=== PATIENT | male | born 1940 | race Two or more races ===

== ENCOUNTER 2022-08-25 10:39 | Outpatient (CLI) | payer OTHER | END 2022-08-25 10:42 | disposition home or self-care (01) | LOC: RAD 10:39 | PROVIDERS: ATTEND Urology | DX: R97.20 Elevated prostate specific antigen [PSA] (principal) ==

== ENCOUNTER 2023-12-12 10:55 | Inpatient (IN) | payer OTHER ==
[~2023-12-12] VITALS: Ht 231.1 cm; Wt 68.0 kg
[2023-12-12] MEDS ORDERED: LIPITOR40 M1 (11:22)
[2023-12-12] MEDS ORDERED: LOSARTAN POTAS100 MG (11:22)
[2023-12-12] MEDS ORDERED: ASPIRIN81 MG (11:22)
[2023-12-12] MEDS ORDERED: CILOSTAZOL100 MG (11:23)
[2023-12-12] MEDS ORDERED: GLYCOTROL CAPS1 EACH (11:23)
[2023-12-12] MEDS ORDERED: DONEPEZIL HCL5 MG (11:23)
[2023-12-12] MEDS ORDERED: ZETIA10 MG (11:23)
[2023-12-12] MEDS ORDERED: FAMOtidine 10 MG/ML (4ML VIAL) IV PUSH ONE (12:45)
[2023-12-12] MEDS ORDERED: CHOLESTYRAMINE/ASPARTAME LIGHT 4 G/PKT PACKET PO ONE (12:58)
[2023-12-12] MEDS ORDERED: FAMOTIDINE/PF 20 MG/2 ML VIAL ONE (13:01)
[2023-12-12] MEDS ORDERED: 0.9 % SODIUM CHLORIDE 500 ML IV ONE (13:15)
[2023-12-12 13:44] LABS: HEMATOCRIT 47.5 % (39.0-48.0); HEMOGLOBIN 16.9 g/dL (13-16.00); MEAN CELL VOLUME 89.8 fL (80.0-100.00); MEAN CORPUSCULAR HGB CONC 35.7 g/dl (32.0-36.0); PLATELET COUNT 331 K/uL (150-450); RED BLOOD COUNT 5.29 M/uL (4.00-6.00); RED CELL DISTRIBUTION WIDTH 13.7 % (11.5-14.5)
[2023-12-12 14:15] LABS: CALCIUM 10.5 mg/dL (8.5-10.1); CREATININE SERUM 1.66 mg/dL (0.70-1.30); GFR 39.96
[2023-12-12 14:19] LABS: POTASSIUM 2.42 mEq/L (3.5-5.1)
[2023-12-12 14:21] LABS: AMYLASE 110 U/L (25-115)
[2023-12-12 14:22] LABS: LIPASE 103 U/L (13-75)
[2023-12-12] MEDS ORDERED: POTASSIUM CHLORIDE/D5-0.9%NACL 1,000 ML IV ONE (16:15)
[2023-12-12] MEDS ORDERED: 0.9 % SODIUM CHLORIDE 1,000 ML IV SCH (19:30)
[2023-12-12] MEDS ORDERED: ONDANSETRON HCL 4 MG in 0.9 % SODIUM CHLORIDE 50 ML IV PRN (19:30)
[2023-12-12] MEDS ORDERED: ACETAMINOPHEN 500 MG GEL..CAP PO PRN (19:30)
[2023-12-12] MEDS ORDERED: PIPERACILLIN/TAZOBACTAM SODIUM 3.375 GM in 0.9 % SODIUM CHLORIDE 100 ML IV SCH (19:31)
[2023-12-12] MEDS ORDERED: PIPERACILLIN/TAZOBACTAM SODIUM 3.375 GM VIAL IV ONE (20:15)
[2023-12-12 21:16] LABS: INR 1.21; PARTIAL THROMBOPLASTIN TIME 31.3 SECONDS (22.0-34.0)
[2023-12-12 21:36] LABS: C-REACTIVE PROTEIN 0.36 MG/DL (0.00-0.29)
[2023-12-12] MEDS ORDERED: POTASSIUM PHOS,M-BASIC-D-BASIC 9 MM in 0.9 % SODIUM CHLORIDE 250 ML IV ONE (23:00)
[2023-12-12 23:40] LABS: PH,URINE 5.5 (5.0-8.0); URINE APPEARANCE Clear; URINE BILIRRUBIN Negative (NEGATIVE); URINE BLOOD Negative; URINE COLOR Dark Yellow; URINE GLUCOSE Negative (NEGATIVE); URINE KETONE Trace (NEGATIVE); URINE LEUKOCYTE Trace; URINE NITRATE Negative; URINE PROTEIN 30 (NEGATIVE)
[2023-12-12 23:45] LABS: URINE BACTERIA 21.4 uL (0.0-1933); URINE EPITHELIAL CELLS 13.6 uL (0.0-38.8); URINE RBC 36.9 uL (0.0-20.8); URINE WBC 12.8 uL (0.0-23.2)
[2023-12-13 00:04] LABS: URINE CAST 0.61 uL (0.0-1.40)
[2023-12-13 00:05] LABS: URINE MUCUS SCANT
[2023-12-13] MEDS ORDERED: PIPERACILLIN/TAZOBACTAM SODIUM 3.375 GM VIAL IV ONE ×4 (05:11→22:23)
[2023-12-13] MEDS ORDERED: LACTOBACILLUS ACIDOPHILUS 1 CAP CAP PO SCH (09:00)
[2023-12-13] MEDS ORDERED: METRONIDAZOLE/SODIUM CHLORIDE 100 ML IV SCH (09:00)
[2023-12-13] MEDS ORDERED: ENOXAPARIN SODIUM 40 MG/0.4 ML SYRINGE SUBCUTANEO SCH (09:00)
[2023-12-13] MEDS ORDERED: FLUOXETINE HCL 20 MG CAPSULE PO SCH (09:00)
[2023-12-13] MEDS ORDERED: LOSARTAN/HYDROCHLOROTHIAZIDE 1 UDTAB TABLET PO SCH (09:00)
[2023-12-13 16:50] VITALS: BP 146/63; O2SAT 98
[2023-12-13] MEDS ORDERED: DONEPEZIL HCL 5 MG TABLET PO SCH (17:00)
[2023-12-13] MEDS ORDERED: ATORVASTATIN CALCIUM 40 MG TABLET PO SCH (17:00)
[2023-12-13] MEDS ORDERED: POTASSIUM CHLORIDE/D5-0.9%NACL 1,000 ML IV ONE (20:45)
[2023-12-13] MEDS ORDERED: POTASSIUM CHLORIDE IN 0.9%NACL 40 MEQ/1,000 ML PIGGYBAG IV ONE (21:06)
[2023-12-14] VITALS: BP 126/60; O2SAT 98
[2023-12-14 08:00] VITALS: BP 167/74; O2SAT 98
[2023-12-14 08:17] LABS: HEMATOCRIT 40.4 % (39.0-48.0); HEMOGLOBIN 14.1 g/dL (13-16.00); MEAN CELL VOLUME 91.8 fL (80.0-100.00); MEAN CORPUSCULAR HEMOGLOBIN 32.1 pg (27.00-32.0); PLATELET COUNT 245 K/uL (150-450); RED CELL DISTRIBUTION WIDTH 13.3 % (11.5-14.5)
[2023-12-14] MEDS ORDERED: LOSARTAN POTASSIUM 25 MG TABLET PO SCH (09:00)
[2023-12-14 09:25] LABS: ALBUMIN 3.1 gm/dL (3.4-5.0); BILIRUBIN TOTAL 0.87 mg/dL (0.3-1.2); CALCIUM 9.2 mg/dL (8.5-10.1); CREATININE SERUM 1.5 mg/dL (0.70-1.30); GFR 44.92; GLOBULINA 3.2 G/DL (2.4-3.5); MAGNESIUM 1.9 mg/dL (1.8-2.4); PHOSPHOROUS 2.8 mg/dL (2.5-4.9); POTASSIUM 3.34 mEq/L (3.5-5.1); TOTAL PROTEIN 6.3 gm/dL (6.4-8.2)
[2023-12-14 09:27] LABS: C-REACTIVE PROTEIN 0.46 MG/DL (0.00-0.29); PROSTATIC SPECIFIC ANTIGEN 23.6 NG/ML (0.010-4.00)
[2023-12-14] MEDS ORDERED: PIPERACILLIN/TAZOBACTAM SODIUM 3.375 GM VIAL IV ONE (11:39)
[2023-12-14] MEDS ORDERED: DOXAZOSIN MESYLATE 4 MG TABLET PO SCH (12:09)
[2023-12-14] MEDS ORDERED: SODIUM CHLORIDE 0.45 % 1,000 ML IV SCH (12:15)
[2023-12-14] MEDS ORDERED: POTASSIUM BICARBONATE/CIT AC 25 MEQ TABLET.EFF PO SCH (13:00)
[2023-12-14] MEDS ORDERED: DOXAZOSIN MESYLATE 4 MG TABLET PO STA (14:08)
[2023-12-14 16:00] VITALS: BP 113/58; O2SAT 95
[2023-12-14] MEDS ORDERED: TAMSULOSIN HCL 0.4 MG CAP PO SCH (21:00)
[2023-12-14] MEDS ORDERED: BISMUTH SUBSALICYLATE 524 MG/30 ML BLIST.PACK PO PRN (22:30)
[2023-12-14 23:04] LABS: fats neutral Normal (.); fats total Normal (.)
[2023-12-15 00:21] VITALS: BP 141/69; O2SAT 98
[2023-12-15 08:00] VITALS: BP 164/72; O2SAT 98
[2023-12-15 08:04] LABS: CREATININE SERUM 1.48 mg/dL (0.70-1.30); GFR 45.62; MAGNESIUM 1.7 mg/dL (1.8-2.4); POTASSIUM 3.44 mEq/L (3.5-5.1)
[2023-12-15 09:30] LABS: PHOSPHOROUS 1.7 mg/dL (2.5-4.9)
[2023-12-15] MEDS ORDERED: LOPERAMIDE HCL 2 MG CAPSULE PO PRN (10:00)
[2023-12-15] MEDS ORDERED: POTASSIUM PHOS,M-BASIC-D-BASIC 3 MM/ML VIAL IV ONE (10:00)
[2023-12-15] MEDS ORDERED: MAGNESIUM SULFATE IN WATER 50 ML IV NR (10:00)
[2023-12-15] MEDS ORDERED: LOPERAMIDE HCL 2 MG CAPSULE PO NR (10:20)
[2023-12-15] MEDS ORDERED: BISMUTH SUBSALICYLATE 262 MG/15 ML BLIST.PACK PO PRN (10:45)
[2023-12-15] MEDS ORDERED: POTASSIUM PHOS,M-BASIC-D-BASIC 3 MM/ML VIAL IV NR ×2 (13:00→19:00)
[2023-12-15 16:00] VITALS: BP 166/76; O2SAT 97
[2023-12-15] MEDS ORDERED: LOSARTAN POTASSIUM 25 MG TABLET PO SCH (17:00)
[2023-12-15] MEDS ORDERED: POTASSIUM BICARBONATE/CIT AC 25 MEQ TABLET.EFF PO SCH (17:00)
[2023-12-15] MEDS ORDERED: AMLODIPINE BESYLATE 5 MG TABLET PO SCH (20:43)
[2023-12-15] MEDS ORDERED: PANTOPRAZOLE SODIUM 40 MG/VIAL VIAL IV SCH (20:48)
[2023-12-16] VITALS: BP 133/55; O2SAT 97
[2023-12-16 07:46] LABS: ALBUMIN 2.6 gm/dL (3.4-5.0); BILIRUBIN TOTAL 0.62 mg/dL (0.3-1.2); CREATININE SERUM 1.09 mg/dL (0.70-1.30); GFR 64.93; GLOBULINA 2.8 G/DL (2.4-3.5); MAGNESIUM 2.1 mg/dL (1.8-2.4); PHOSPHOROUS 2.4 mg/dL (2.5-4.9); POTASSIUM 3.24 mEq/L (3.5-5.1); TOTAL PROTEIN 5.4 gm/dL (6.4-8.2)
[2023-12-16 08:00] VITALS: BP 126/62; O2SAT 95
[2023-12-16] MEDS ORDERED: DEXTROSE 5 % IN WATER 1,000 ML IV SCH (11:45)
[2023-12-16] MEDS ORDERED: LOSARTAN POTASSIUM 50 MG TABLET PO SCH (12:00)
[2023-12-16] MEDS ORDERED: MAGNESIUM CHLORIDE 70 MG TABLET.DR PO SCH (12:00)
[2023-12-16] MEDS ORDERED: NAPH,MB-DB/K PH,MBDB 1 PKT PACKET PO SCH (12:00)
[2023-12-16] MEDS ORDERED: POTASSIUM CHLORIDE 20MEQ/100ML H2O PB IV SCH (13:00)
[2023-12-16 16:56] VITALS: BP 100/51; O2SAT 98
[2023-12-16] MEDS ORDERED: POTASSIUM BICARBONATE/CIT AC 25 MEQ TABLET.EFF PO SCH (17:00)
[2023-12-16] MEDS ORDERED: DOXAZOSIN MESYLATE 4 MG TABLET PO SCH (17:00)
[2023-12-17 00:25] VITALS: BP 112/55; O2SAT 96
[2023-12-17 08:00] VITALS: BP 163/74; O2SAT 98
[2023-12-17] MEDS ORDERED: LOSARTAN POTASSIUM 50 MG TABLET PO SCH (09:00)
[2023-12-17] MEDS ORDERED: POTASSIUM CHLORIDE 20MEQ/100ML H2O PB IV NR (12:00)
[2023-12-17 17:00] VITALS: BP 133/60; O2SAT 98
[2023-12-18 00:26] VITALS: BP 139/71; O2SAT 97
[2023-12-18 08:38] LABS: HEMATOCRIT 40.6 % (39.0-48.0); HEMOGLOBIN 14.1 g/dL (13-16.00); MEAN CELL VOLUME 90.1 fL (80.0-100.00); MEAN CORPUSCULAR HEMOGLOBIN 31.4 pg (27.00-32.0); MEAN CORPUSCULAR HGB CONC 34.8 g/dl (32.0-36.0); PLATELET COUNT 220 K/uL (150-450); RED CELL DISTRIBUTION WIDTH 13.8 % (11.5-14.5)
[2023-12-18 08:49] LABS: ERYTHROCYTE SEDIMENTATION RATE 33 mm/hr
[2023-12-18 08:53] VITALS: BP 179/77; O2SAT 97
[2023-12-18 09:40] LABS: ALBUMIN 2.8 gm/dL (3.4-5.0); ALKALINE PHOSPHATASE 113 U/L (50-136); ALT/SGPT 210 U/L (12-78); ANION GAP 8 (10.0-20.0); AST/SGOT 323 U/L (15-37); BILIRUBIN TOTAL 0.55 mg/dL (0.3-1.2); BLOOD UREA NITROGEN 5 mg/dL (7-18); BUN CREA RATIO 5 (7.0-25.0); CALCIUM 8.6 mg/dL (8.5-10.1); CARBON DIOXIDE 30 mEq/L (21-32); CHLORIDE 108 mmol/L (98-107); CREATININE SERUM 1.01 mg/dL (0.70-1.30); GLOBULINA 3.3 G/DL (2.4-3.5); GLUCOSE FASTING 91 mg/dL (65-100); OSMOLALITY SERUM 280 MOSM/KG (275-295); POTASSIUM 3.71 mEq/L (3.5-5.1); SODIUM 142 mmol/L (136-145); TOTAL PROTEIN 6.1 gm/dL (6.4-8.2)
[2023-12-18 09:42] LABS: C-REACTIVE PROTEIN < 0.29 MG/DL (0.00-0.29)
[2023-12-18] MEDS ORDERED: ACYCLOVIR SODIUM 7MG/ML REDILUIDO IV SCH (17:00)
[2023-12-18 17:12] VITALS: BP 166/71; O2SAT 98
[2023-12-18 21:04] LABS: GIARDIA LAMBLIA EIA Negative (Negative)
[2023-12-19 01:28] VITALS: BP 121/57; O2SAT 96
[2023-12-19 10:00] VITALS: BP 130/62; O2SAT 97
[2023-12-19 10:45] LABS: ALBUMIN 2.5 gm/dL (3.4-5.0); BILIRUBIN TOTAL 0.47 mg/dL (0.3-1.2); BILIRUBIN,CONJUGATED 0.14 mg/dL (0.0-0.2); BILIRUBIN,UNCONJUGATED 0.33 mg/dL (0.0-0.6); FERRITIN 242.8 NG/ML (26-388); TOTAL PROTEIN 5.5 gm/dL (6.4-8.2)
[2023-12-19 10:47] LABS: PROSTATIC SPECIFIC ANTIGEN 11.8 NG/ML (0.010-4.00)
[2023-12-19] MEDS ORDERED: ACYCLOVIR SODIUM 7MG/ML REDILUIDO IV SCH (17:00)
[2023-12-19] MEDS ORDERED: DIPHENHYDRAMINE HCL 50 MG/ML VIAL 1ML IV SCH (17:00)
[2023-12-19 17:07] VITALS: BP 151/74; O2SAT 94
[2023-12-20 00:47] VITALS: BP 147/73; O2SAT 99
[2023-12-20 01:06] LABS: hav igm Negative (Negative); hcv Non Reactive (Non Reactive); hep b c Negative (Negative); hep b s ag Negative (Negative)
[2023-12-20 08:00] VITALS: BP 134/66; O2SAT 95
[2023-12-20] MEDS ORDERED: PANTOPRAZOLE SODIUM 40 MG TABLET.DR PO SCH (09:00)
[2023-12-20 09:07] LABS: ANTI THYROID PEROXIDASE < 9 IU/mL (0-34); CERULOPLASMIN 20.9 mg/dL (16.0-31.0)
[2023-12-20 16:00] VITALS: BP 161/68; O2SAT 99
[2023-12-21 01:05] VITALS: BP 141/67; O2SAT 97
[2023-12-21 11:07] LABS: campy Final report (.)
[2023-12-21 16:00] VITALS: BP 133/69; O2SAT 95
[2023-12-22 00:48] VITALS: BP 150/70; O2SAT 98
[2023-12-22 08:00] VITALS: BP 124/77; O2SAT 96
[2023-12-22 08:52] LABS: ALBUMIN 2.6 gm/dL (3.4-5.0); BILIRUBIN TOTAL 0.4 mg/dL (0.3-1.2); BILIRUBIN,CONJUGATED 0.1 mg/dL (0.0-0.2); BILIRUBIN,UNCONJUGATED 0.3 mg/dL (0.0-0.6); TOTAL PROTEIN 5.6 gm/dL (6.4-8.2)
[2023-12-22 16:00] VITALS: BP 174/82; O2SAT 95
[2023-12-22] MEDS ORDERED: PEG3350/SOD SULF,BICARB,CL/KCL 4,000 ML GALLON PO NR (19:00)
[2023-12-22 23:04] LABS: SMOOTH MUSCLE ANTIBODY 11 Units (0-19)
[2023-12-23 00:20] VITALS: BP 166/78; O2SAT 97
[2023-12-23 08:00] VITALS: BP 151/78; O2SAT 97
[2023-12-23] MEDS ORDERED: MIDAZOLAM HCL 2 MG/2 ML VIAL IV STA (12:07)
[2023-12-23] MEDS ORDERED: FentaNYL CITRATE/PF 50MCG/ML 2ML VIAL IJ STA (12:08)
[2023-12-23 13:40] LABS: HEMATOCRIT 40.6 % (39.0-48.0); HEMOGLOBIN 14.1 g/dL (13-16.00); MEAN CELL VOLUME 92.8 fL (80.0-100.00); MEAN CORPUSCULAR HEMOGLOBIN 32.1 pg (27.00-32.0); MEAN CORPUSCULAR HGB CONC 34.6 g/dl (32.0-36.0); PLATELET COUNT 228 K/uL (150-450); RED BLOOD COUNT 4.38 M/uL (4.00-6.00); RED CELL DISTRIBUTION WIDTH 13.9 % (11.5-14.5)
[2023-12-23 14:21] LABS: ALBUMIN 3.3 gm/dL (3.4-5.0); BILIRUBIN TOTAL 0.7 mg/dL (0.3-1.2); BILIRUBIN,CONJUGATED 0.14 mg/dL (0.0-0.2); BILIRUBIN,UNCONJUGATED 0.56 mg/dL (0.0-0.6); CALCIUM 9.5 mg/dL (8.5-10.1); CREATININE SERUM 1.13 mg/dL (0.70-1.30); GFR 62.28; MAGNESIUM 1.9 mg/dL (1.8-2.4); POTASSIUM 3.1 mEq/L (3.5-5.1); TOTAL PROTEIN 6.7 gm/dL (6.4-8.2)
[2023-12-23 16:41] VITALS: BP 163/79; O2SAT 97
[2023-12-23] MEDS ORDERED: POTASSIUM CHLORIDE 20MEQ/100ML H2O PB IV SCH (17:00)
[2023-12-24 01:00] VITALS: BP 147/86; O2SAT 97
[2023-12-24 07:57] VITALS: BP 167/82; O2SAT 97
[2023-12-24] MEDS ORDERED: POTASSIUM BICARBONATE/CIT AC 25 MEQ TABLET.EFF PO SCH (09:00)
[2023-12-24 13:34] LABS: CALCIUM 8.6 mg/dL (8.5-10.1); GFR 71.72; MAGNESIUM 1.8 mg/dL (1.8-2.4); POTASSIUM 4.08 mEq/L (3.5-5.1)
[2023-12-24 16:32] VITALS: BP 133/59; O2SAT 98
[2023-12-24] MEDS ORDERED: VALACYCLOVIR1000 MG PO (17:50)
[2023-12-24] MEDS ORDERED: DOXAZOSIN MESYLA4 MG PO (17:51)
[2023-12-24] MEDS ORDERED: INTESTINEX680 M1 PO (17:51)
[2023-12-27 17:10] LABS: alpha I 167 mg/dL (101-187)
[2023-12-30 11:09] LABS: alpha I 166 mg/dL (101-187)
== END 2023-12-24 19:57 | disposition home or self-care (01) | DRG 392 ==
LOC: ER 10:57 → MEDI 20:05 → SURH 20:05 → SEC-K 20:11 → SURH 12-13 00:05
PROVIDERS: General Practice; Internal Medicine; Internal Medicine Gastroenterology; Internal Medicine Infectious Disease; Internal Medicine Nephrology; ADMIT Internal Medicine; ATTEND Internal Medicine
PROC: BW21ZZZ Computerized Tomography (CT Scan) of Abdomen and Pelvis (ICD-10-PCS; 2023-12-12)
PROC: BW40ZZZ Ultrasonography of Abdomen (ICD-10-PCS; 2023-12-19)
PROC: 0DBP8ZX Excision of Rectum, Via Natural or Artificial Opening Endoscopic, Diagnostic (ICD-10-PCS; principal; 2023-12-23)
PROC: 0DBN8ZX Excision of Sigmoid Colon, Via Natural or Artificial Opening Endoscopic, Diagnostic (ICD-10-PCS; 2023-12-23)
DX: K52.9 Noninfective gastroenteritis and colitis, unspecified (principal); N17.9 Acute kidney failure, unspecified; E87.0 Hyperosmolality and hypernatremia; E86.0 Dehydration; K57.30 Diverticulosis of large intestine without perforation or abscess without bleeding; E87.6 Hypokalemia; D12.6 Benign neoplasm of colon, unspecified; I10 Essential (primary) hypertension; E78.5 Hyperlipidemia, unspecified; N40.0 Benign prostatic hyperplasia without lower urinary tract symptoms; B02.9 Zoster without complications; F41.8 Other specified anxiety disorders

== ENCOUNTER 2023-12-31 14:43 | Inpatient (IN) | payer OTHER ==
[~2023-12-31] VITALS: Ht 170.2 cm; Wt 65.8 kg
[~2023-12-31 14:43] MED LIST: ASPIRIN81 MG; CILOSTAZOL100 MG; DONEPEZIL HCL5 MG; DOXAZOSIN MESYLA4 MG PO; GLYCOTROL CAPS1 EACH; INTESTINEX680 M1 PO; LIPITOR40 M1; LOSARTAN POTAS100 MG; VALACYCLOVIR1000 MG PO; ZETIA10 MG
[2023-12-31] MEDS ORDERED: LOSARTAN POTAS100 MG PO (14:47)
[2023-12-31 16:42] LABS: HEMATOCRIT 42.6 % (39.0-48.0); HEMOGLOBIN 14.5 g/dL (13-16.00); MEAN CELL VOLUME 95.8 fL (80.0-100.00); MEAN CORPUSCULAR HEMOGLOBIN 32.6 pg (27.00-32.0); MEAN CORPUSCULAR HGB CONC 34.1 g/dl (32.0-36.0); PLATELET COUNT 287 K/uL (150-450); RED BLOOD COUNT 4.45 M/uL (4.00-6.00); RED CELL DISTRIBUTION WIDTH 15.7 % (11.5-14.5)
[2023-12-31 17:08] LABS: ALBUMIN 3.5 gm/dL (3.4-5.0); BILIRUBIN TOTAL 0.67 mg/dL (0.3-1.2); CREATININE SERUM 1.47 mg/dL (0.70-1.30); GFR 45.98; GLOBULINA 3.8 G/DL (2.4-3.5); MAGNESIUM 2.2 mg/dL (1.8-2.4); PHOSPHOROUS 2.3 mg/dL (2.5-4.9); POTASSIUM 4.24 mEq/L (3.5-5.1); TOTAL PROTEIN 7.3 gm/dL (6.4-8.2)
[2023-12-31 17:33] LABS: PH,URINE 5.5 (5.0-8.0); URINE APPEARANCE Clear; URINE BILIRRUBIN Negative (NEGATIVE); URINE BLOOD Negative; URINE COLOR Yellow; URINE GLUCOSE Negative (NEGATIVE); URINE KETONE Negative (NEGATIVE); URINE LEUKOCYTE Negative; URINE NITRATE Negative; URINE PROTEIN Negative (NEGATIVE); URINE UROBILINOGEN 0.2 E.U./dl
[2023-12-31 17:37] LABS: URINE BACTERIA 7.5 uL (0.0-1933); URINE EPITHELIAL CELLS 3.8 uL (0.0-38.8); URINE RBC 8.2 uL (0.0-20.8); URINE WBC 4.7 uL (0.0-23.2)
[2023-12-31 17:40] LABS: URINE CAST 0.91 uL (0.0-1.40)
[2023-12-31] MEDS ORDERED: LevETIRAcetam 500 MG/5 ML VIAL IV SCH (18:34)
[2023-12-31] MEDS ORDERED: ACETAMINOPHEN 500 MG GEL..CAP PO PRN (19:30)
[2023-12-31] MEDS ORDERED: 0.9 % SODIUM CHLORIDE 1,000 ML IV SCH (19:30)
[2023-12-31 21:28] LABS: INR 1.15; PARTIAL THROMBOPLASTIN TIME 28.5 SECONDS (22.0-34.0); PROTHROMBIN TIME 12.4 SECONDS (9.0-11.5)
[2023-12-31 21:47] VITALS: O2SAT 98
[2024-01-01 02:15] VITALS: BP 130/71; O2SAT 96
[2024-01-01 08:14] VITALS: BP 153/82
[2024-01-01 08:42] LABS: HEMATOCRIT 38.8 % (39.0-48.0); HEMOGLOBIN 13.5 g/dL (13-16.00); MEAN CELL VOLUME 95.2 fL (80.0-100.00); MEAN CORPUSCULAR HGB CONC 34.7 g/dl (32.0-36.0); PLATELET COUNT 248 K/uL (150-450); RED BLOOD COUNT 4.08 M/uL (4.00-6.00); RED CELL DISTRIBUTION WIDTH 14.8 % (11.5-14.5)
[2024-01-01 08:51] LABS: ERYTHROCYTE SEDIMENTATION RATE 53 mm/hr
[2024-01-01] MEDS ORDERED: FAMOTIDINE/PF 20 MG in 0.9 % SODIUM CHLORIDE 8 ML IV PUSH SCH (09:00)
[2024-01-01] MEDS ORDERED: ENOXAPARIN SODIUM 40 MG/0.4 ML SYRINGE SUBCUTANEO SCH (09:00)
[2024-01-01] MEDS ORDERED: LOSARTAN POTASSIUM 100 MG TABLET PO SCH (09:00)
[2024-01-01 09:31] LABS: ALBUMIN 3.2 gm/dL (3.4-5.0); ALKALINE PHOSPHATASE 122 U/L (50-136); ALT/SGPT 97 U/L (12-78); ANION GAP 6 (10.0-20.0); AST/SGOT 61 U/L (15-37); BILIRUBIN TOTAL 0.57 mg/dL (0.3-1.2); BILIRUBIN,CONJUGATED 0.16 mg/dL (0.0-0.2); BILIRUBIN,UNCONJUGATED 0.41 mg/dL (0.0-0.6); BLOOD UREA NITROGEN 20 mg/dL (7-18); BUN CREA RATIO 16 (7.0-25.0); CALCIUM 9.7 mg/dL (8.5-10.1); CARBON DIOXIDE 31 mEq/L (21-32); CHLORIDE 108 mmol/L (98-107); CHOL HDL RATIO 4.6 (0-5.0); CHOLESTEROL 183 mg/dL (0-200); CREATININE SERUM 1.25 mg/dL (0.70-1.30); GFR 55.43; GLUCOSE FASTING 80 mg/dL (65-100); HDL 40 mg/dl (40-60); LDL 127 mg/dl (0-130); OSMOLALITY SERUM 283 MOSM/KG (275-295); POTASSIUM 3.96 mEq/L (3.5-5.1); SODIUM 141 mmol/L (136-145); TOTAL PROTEIN 6.5 gm/dL (6.4-8.2); TRIGLYCERIDES 79 mg/dL (0-150); VLDL 15 (0-39)
[2024-01-01 09:32] LABS: C-REACTIVE PROTEIN < 0.29 MG/DL (0.00-0.29)
[2024-01-01 13:16] VITALS: O2SAT 100
[2024-01-01 16:29] VITALS: O2SAT 100
[2024-01-01 17:00] VITALS: BP 153/80
[2024-01-01 19:51] VITALS: O2SAT 95
[2024-01-01] MEDS ORDERED: TAMSULOSIN HCL 0.4 MG CAP PO SCH (21:00)
[2024-01-02 00:44] VITALS: BP 130/69; O2SAT 99
[2024-01-02 01:00] VITALS: O2SAT 95
[2024-01-02 05:00] VITALS: O2SAT 99
[2024-01-02 07:42] VITALS: BP 134/74
[2024-01-02] MEDS ORDERED: KEPPRA500 MG PO (08:45)
[2024-01-02 09:45] VITALS: O2SAT 95
== END 2024-01-02 14:30 | disposition home or self-care (01) | DRG 101 ==
LOC: ER 14:43 → MEDJ 20:00
PROVIDERS: Emergency Medicine; General Practice; ADMIT Internal Medicine; ATTEND Internal Medicine
PROC: BW28ZZZ Computerized Tomography (CT Scan) of Head (ICD-10-PCS; principal; 2023-12-31)
PROC: BW38ZZZ Magnetic Resonance Imaging (MRI) of Head (ICD-10-PCS; 2023-12-31)
PROC: B345ZZZ Ultrasonography of Bilateral Common Carotid Arteries (ICD-10-PCS; 2023-12-31)
PROC: 4A12X4Z Monitoring of Cardiac Electrical Activity, External Approach (ICD-10-PCS; 2023-12-31)
PROC: B24BZZZ Ultrasonography of Heart with Aorta (ICD-10-PCS; 2024-01-01)
DX: G40.89 Other seizures (principal); N17.9 Acute kidney failure, unspecified; R55 Syncope and collapse; G30.9 Alzheimer's disease, unspecified; F02.80 Dementia in other diseases classified elsewhere, unspecified severity, without behavioral disturbance, psychotic disturbance, mood disturbance, and anxiety; I10 Essential (primary) hypertension; E78.5 Hyperlipidemia, unspecified
CPT/HCPCS: 70544

== ENCOUNTER 2024-03-29 15:25 | Emergency (ER) | payer OTHER ==
[~2024-03-29] VITALS: Ht 170.2 cm; Wt 55.3 kg
[~2024-03-29 15:25] MED LIST changes: +KEPPRA500 MG PO; +LOSARTAN POTAS100 MG PO
[2024-03-29] MEDS ORDERED: CHILDREN'S ASPI81 MG PO (15:29)
[2024-03-29] MEDS ORDERED: ATORVASTATIN CA40 MG PO (15:29)
[2024-03-29] MEDS ORDERED: FOLIC ACID20 MG PO (15:29)
[2024-03-29] MEDS ORDERED: FLUOXETINE HCL60 MG PO (15:29)
[2024-03-29] MEDS ORDERED: ARICEPT5 MG PO (15:29)
[2024-03-29] MEDS ORDERED: EZETIMIBE10 MG PO (15:30)
[2024-03-29] MEDS ORDERED: 0.9 % SODIUM CHLORIDE 500 ML IV ONE (15:45)
[2024-03-29 16:03] LABS: HEMATOCRIT 37.3 % (39.0-48.0); HEMOGLOBIN 13.1 g/dL (13-16.00); MEAN CELL VOLUME 92.6 fL (80.0-100.00); MEAN CORPUSCULAR HEMOGLOBIN 32.5 pg (27.00-32.0); PLATELET COUNT 218 K/uL (150-450); RED BLOOD COUNT 4.03 M/uL (4.00-6.00); RED CELL DISTRIBUTION WIDTH 13.9 % (11.5-14.5)
[2024-03-29 17:47] LABS: CALCIUM 9.8 mg/dL (8.5-10.1); CREATININE SERUM 1.62 mg/dL (0.70-1.30); GFR 41.1; POTASSIUM 3.25 mEq/L (3.5-5.1)
[2024-03-29 23:52] LABS: CALCIUM 9.7 mg/dL (8.5-10.1); CREATININE SERUM 1.42 mg/dL (0.70-1.30); GFR 47.85
[2024-03-29 23:55] LABS: POTASSIUM 2.88 mEq/L (3.5-5.1)
[2024-03-30] MEDS ORDERED: POTASSIUM CHLORIDE IN WATER 40 MEQ/100 ML PIGGYBAG IV ONE (00:15)
[2024-03-30] MEDS ORDERED: POTASSIUM BICARBONATE/CIT AC 25 MEQ TABLET.EFF PO SCH (09:00)
== END 2024-03-30 09:05 | disposition home or self-care (01) ==
LOC: ER 15:27
PROVIDERS: General Practice
DX: R19.7 Diarrhea, unspecified (principal); I10 Essential (primary) hypertension; Z86.73 Personal history of transient ischemic attack (TIA), and cerebral infarction without residual deficits; G30.8 Other Alzheimer's disease; F02.80 Dementia in other diseases classified elsewhere, unspecified severity, without behavioral disturbance, psychotic disturbance, mood disturbance, and anxiety; E78.00 Pure hypercholesterolemia, unspecified; G40.89 Other seizures; Z20.822 Contact with and (suspected) exposure to COVID-19
CPT/HCPCS: 36415; 96365; 96366; 99282; J7042

== ENCOUNTER 2024-05-03 18:39 | Inpatient (IN) | payer OTHER ==
[~2024-05-03] VITALS: Ht 172.7 cm; Wt 49.9 kg
[~2024-05-03 18:39] MED LIST changes: +ARICEPT5 MG PO; +ATORVASTATIN CA40 MG PO; +CHILDREN'S ASPI81 MG PO; +EZETIMIBE10 MG PO; +FLUOXETINE HCL60 MG PO; +FOLIC ACID20 MG PO
--- NOTE | 2024-05-03 18:58 | NUR ---
SE RECIBE PTE EN AMBULANCIA EN COMPANIA DE PARAMEDICOS ALERTA Y ORIENTADO X3, REFIERE 2 DIARREAS Y 2 VOMITOS EN EL HERNAN DE HOY. SE [place] SV Y SE UBICA
[2024-05-03] MEDS ORDERED: 0.9 % SODIUM CHLORIDE 1,000 ML IV SCH (19:00)
--- NOTE | 2024-05-03 20:07 | NUR ---
PTE ALERTA Y ORIENTADO X3, JANINE RÍOS ORIENTA SOBRE TX MEDICO Y REFIERE ACEPTAR. EJECUTAN ORDENES MEDICAS EN VIERA TOTALIDAD
[2024-05-03 20:12] LABS: HEMATOCRIT 38.7 % (39.0-48.0); HEMOGLOBIN 13.7 g/dL (13-16.00); MEAN CELL VOLUME 91.7 fL (80.0-100.00); MEAN CORPUSCULAR HEMOGLOBIN 32.5 pg (27.00-32.0); MEAN CORPUSCULAR HGB CONC 35.4 g/dl (32.0-36.0); PLATELET COUNT 246 K/uL (150-450); RED BLOOD COUNT 4.22 M/uL (4.00-6.00); RED CELL DISTRIBUTION WIDTH 13.3 % (11.5-14.5)
[2024-05-03 20:39] LABS: CALCIUM 10.2 mg/dL (8.5-10.1); CREATININE SERUM 1.98 mg/dL (0.70-1.30); GFR 32.6
[2024-05-03 20:43] LABS: POTASSIUM 2.44 mEq/L (3.5-5.1)
[2024-05-03] MEDS ORDERED: POTASSIUM CHLORIDE/D5-0.9%NACL 1,000 ML IV ONE (20:45)
--- NOTE | 2024-05-04 00:16 | NUR ---
PTE ALERTA Y ORIENTADO X3 DEL TURNO ANTERIOR. SE ORIENTA SOBRE CONTINUIDAD DE CUIDADO DE ENFERMERIA. PENDIENTE RESULTADOS DE LAB
[2024-05-04 00:32] LABS: URINE APPEARANCE Clear; URINE BILIRRUBIN Negative (NEGATIVE); URINE BLOOD Negative; URINE COLOR Yellow; URINE GLUCOSE Negative (NEGATIVE); URINE KETONE Trace (NEGATIVE); URINE LEUKOCYTE Negative; URINE NITRATE Negative; URINE PROTEIN Trace (NEGATIVE); URINE UROBILINOGEN 0.2 E.U./dl
[2024-05-04 00:54] LABS: URINE BACTERIA 28.1 uL (0.0-1933); URINE CAST 6.03 uL (0.0-1.40); URINE EPITHELIAL CELLS 22.5 uL (0.0-38.8); URINE RBC 4.2 uL (0.0-20.8); URINE WBC 7.9 uL (0.0-23.2)
--- NOTE | 2024-05-04 07:06 | NUR ---
SE RECIBE A PACIENTE ALERTA Y ORIENTADO X3 EN ANIYA A NIVEL DE PISO JUNTO CON BARRANDAS ELEVADAS. CANALIZADO CON #20 EN RT ARM BAJANDO KCL 40MEQ EN 1000ML. PENDIENTE A ENTREGA DE STOOL.
[2024-05-04] MEDS ORDERED: POTASSIUM BICARBONATE/CIT AC 25 MEQ TABLET.EFF PO ONE (09:15)
[2024-05-04 11:49] LABS: CALCIUM 9.9 mg/dL (8.5-10.1); CREATININE SERUM 1.62 mg/dL (0.70-1.30); GFR 41.1
[2024-05-04 12:05] LABS: POTASSIUM 2.92 mEq/L (3.5-5.1)
[2024-05-04] MEDS ORDERED: LOSARTAN POTASSIUM 100 MG TABLET PO SCH (15:59)
[2024-05-04] MEDS ORDERED: ATORVASTATIN CALCIUM 40 MG TABLET PO SCH (15:59)
[2024-05-04] MEDS ORDERED: POTASSIUM CHLORIDE IN WATER 100 ML IV NR (16:00)
[2024-05-04] MEDS ORDERED: 0.9 % SODIUM CHLORIDE 1,000 ML IV SCH (16:00)
[2024-05-04] MEDS ORDERED: PANTOPRAZOLE SODIUM 40 MG in 0.9 % SODIUM CHLORIDE 8 ML IV PUSH SCH (16:01)
[2024-05-04] MEDS ORDERED: DONEPEZIL HCL 5 MG TABLET PO SCH (17:00)
[2024-05-04 18:04] VITALS: BP 165/86
[2024-05-04 18:04] LABS: INR 1.15; PARTIAL THROMBOPLASTIN TIME 27.5 SECONDS (22.0-34.0); PROTHROMBIN TIME 12.4 SECONDS (9.0-11.5)
[2024-05-04 18:13] LABS: ALBUMIN 3.3 gm/dL (3.4-5.0); CALCIUM 9.4 mg/dL (8.5-10.1); CREATININE SERUM 1.33 mg/dL (0.70-1.30); GFR 51.6
[2024-05-04 18:16] LABS: POTASSIUM 2.83 mEq/L (3.5-5.1)
[2024-05-04 18:17] LABS: PHOSPHOROUS 1.4 mg/dL (2.5-4.9)
[2024-05-04] MEDS ORDERED: POTASSIUM BICARBONATE/CIT AC 25 MEQ TABLET.EFF PO SCH (21:00)
[2024-05-04] MEDS ORDERED: POTASSIUM PHOS,M-BASIC-D-BASIC 18 MM in 0.9 % SODIUM CHLORIDE 250 ML IV SCH (21:15)
[2024-05-04 22:33] VITALS: BP 133/65
[2024-05-05] MEDS ORDERED: POTASSIUM CHLORIDE IN WATER 100 ML IV NR (01:00)
[2024-05-05 01:10] VITALS: BP 126/68
[2024-05-05 05:25] LABS: CREATININE SERUM 1.22 mg/dL (0.70-1.30); GFR 57.01; POTASSIUM 3.17 mEq/L (3.5-5.1)
[2024-05-05 08:24] VITALS: BP 102/55; O2SAT 97
[2024-05-05] MEDS ORDERED: CHOLESTYRAMINE/ASPARTAME LIGHT 4 G/PKT PACKET PO SCH (09:00)
[2024-05-05] MEDS ORDERED: LACTOBACILLUS ACIDOPHILUS 1 CAP CAP PO SCH ×2 (09:00→17:00)
[2024-05-05 11:30] LABS: FECAL LEUKOCYTES POSITIVE (NEGATIVE); ob POSITIVE (NEGATIVE)
[2024-05-05 16:38] VITALS: BP 130/63; O2SAT 98
[2024-05-05] MEDS ORDERED: POTASSIUM PHOS,M-BASIC-D-BASIC 18 MM in 0.9 % SODIUM CHLORIDE 250 ML IV SCH (20:00)
[2024-05-05 20:35] VITALS: BP 134/77; O2SAT 99
[2024-05-06 01:32] VITALS: BP 125/57
[2024-05-06 06:12] LABS: HEMATOCRIT 38.3 % (39.0-48.0); HEMOGLOBIN 13.2 g/dL (13-16.00); MEAN CELL VOLUME 92.8 fL (80.0-100.00); MEAN CORPUSCULAR HEMOGLOBIN 31.9 pg (27.00-32.0); MEAN CORPUSCULAR HGB CONC 34.4 g/dl (32.0-36.0); PLATELET COUNT 212 K/uL (150-450); RED BLOOD COUNT 4.12 M/uL (4.00-6.00); RED CELL DISTRIBUTION WIDTH 13.5 % (11.5-14.5)
[2024-05-06 06:50] LABS: ALBUMIN 3.1 gm/dL (3.4-5.0); BILIRUBIN TOTAL 0.62 mg/dL (0.3-1.2); CALCIUM 9.1 mg/dL (8.5-10.1); CREATININE SERUM 1.24 mg/dL (0.70-1.30); GFR 55.95; GLOBULINA 3.6 G/DL (2.4-3.5); MAGNESIUM 1.9 mg/dL (1.8-2.4); PHOSPHOROUS 2.2 mg/dL (2.5-4.9); TOTAL PROTEIN 6.7 gm/dL (6.4-8.2)
[2024-05-06 07:36] LABS: POTASSIUM 2.89 mEq/L (3.5-5.1)
[2024-05-06 08:37] VITALS: BP 133/72; O2SAT 99
[2024-05-06] MEDS ORDERED: POTASSIUM CHLORIDE IN WATER 40 MEQ/100 ML PIGGYBAG IV SCH (09:00)
[2024-05-06] MEDS ORDERED: POTASSIUM PHOS,M-BASIC-D-BASIC 15 MM in 0.9 % SODIUM CHLORIDE 250 ML IV NR (09:30)
[2024-05-06 12:18] LABS: CREATININE SERUM 1.23 mg/dL (0.8-1.3)
[2024-05-06 16:26] VITALS: BP 122/59; O2SAT 94
[2024-05-07] MEDS ORDERED: POTASSIUM CHLORIDE IN WATER 40 MEQ/100 ML PIGGYBAG IV ONE (01:19)
[2024-05-07 01:37] VITALS: BP 144/69; O2SAT 98
[2024-05-07 07:17] LABS: ALBUMIN 2.8 gm/dL (3.4-5.0); BILIRUBIN TOTAL 0.43 mg/dL (0.3-1.2); CALCIUM 8.8 mg/dL (8.5-10.1); CREATININE SERUM 1.09 mg/dL (0.70-1.30); GFR 64.93; GLOBULINA 3.4 G/DL (2.4-3.5); POTASSIUM 4.05 mEq/L (3.5-5.1); TOTAL PROTEIN 6.2 gm/dL (6.4-8.2)
[2024-05-07 08:05] VITALS: BP 140/78
[2024-05-07] MEDS ORDERED: MIDAZOLAM HCL 2 MG/2 ML VIAL IV ONE (11:15)
[2024-05-07 12:02] VITALS: BP 148/71; O2SAT 97
[2024-05-07 15:24] LABS: URINE PROT QUANT 24HR 20.8 MG/DL
[2024-05-07 15:25] LABS: URINE PROT QUANT 24 HR 145.6 MG/24HR (42-225)
[2024-05-07 15:26] LABS: K URINE 24 HR 12.6 mmol/24H (25-125)
[2024-05-07 16:09] LABS: URINE APPEARANCE Clear; URINE BILIRRUBIN Negative (NEGATIVE); URINE BLOOD Negative; URINE COLOR Yellow; URINE GLUCOSE Negative (NEGATIVE); URINE KETONE Negative (NEGATIVE); URINE LEUKOCYTE Negative; URINE NITRATE Negative; URINE PROTEIN Negative (NEGATIVE); URINE UROBILINOGEN 0.2 E.U./dl
[2024-05-07 16:12] LABS: URINE BACTERIA 19.5 uL (0.0-1933); URINE EPITHELIAL CELLS 1.7 uL (0.0-38.8); URINE RBC 8.2 uL (0.0-20.8); URINE WBC 2.5 uL (0.0-23.2)
[2024-05-07 16:14] LABS: URINE CAST 0.29 uL (0.0-1.40)
[2024-05-07 20:44] VITALS: BP 121/62
[2024-05-08 00:38] VITALS: BP 131/61; O2SAT 98
[2024-05-08 09:01] VITALS: BP 144/70; O2SAT 95
[2024-05-08 18:36] VITALS: BP 133/69
[2024-05-09 01:30] VITALS: BP 139/56; O2SAT 99
[2024-05-09 06:35] LABS: HEMATOCRIT 35.8 % (39.0-48.0); HEMOGLOBIN 12.6 g/dL (13-16.00); MEAN CELL VOLUME 92.8 fL (80.0-100.00); MEAN CORPUSCULAR HEMOGLOBIN 32.6 pg (27.00-32.0); MEAN CORPUSCULAR HGB CONC 35.2 g/dl (32.0-36.0); PLATELET COUNT 185 K/uL (150-450); RED BLOOD COUNT 3.86 M/uL (4.00-6.00); RED CELL DISTRIBUTION WIDTH 13.5 % (11.5-14.5)
[2024-05-09 07:46] LABS: ALBUMIN 2.5 gm/dL (3.4-5.0); BILIRUBIN TOTAL 0.42 mg/dL (0.3-1.2); CALCIUM 8.5 mg/dL (8.5-10.1); CREATININE SERUM 1.17 mg/dL (0.70-1.30); GFR 59.83; GLOBULINA 3.1 G/DL (2.4-3.5); MAGNESIUM 1.7 mg/dL (1.8-2.4); POTASSIUM 4.25 mEq/L (3.5-5.1); TOTAL PROTEIN 5.6 gm/dL (6.4-8.2)
[2024-05-09 08:19] VITALS: BP 135/65; O2SAT 98
[2024-05-09 22:03] LABS: afb smear Negative (.); afb spe proc Concentration (.)
== END 2024-05-09 12:59 | disposition home or self-care (01) | DRG 392 ==
LOC: ER 18:39 → MEDI 05-04 16:35
PROVIDERS: Emergency Medicine; General Practice; Internal Medicine; ADMIT Internal Medicine; ATTEND Internal Medicine
PROC: 02HV33Z Insertion of Infusion Device into Superior Vena Cava, Percutaneous Approach (ICD-10-PCS; 2024-05-06)
PROC: 0DJ08ZZ Inspection of Upper Intestinal Tract, Via Natural or Artificial Opening Endoscopic (ICD-10-PCS; principal; 2024-05-07)
DX: K52.9 Noninfective gastroenteritis and colitis, unspecified (principal); N17.9 Acute kidney failure, unspecified; R55 Syncope and collapse; E87.6 Hypokalemia; D72.829 Elevated white blood cell count, unspecified

== ENCOUNTER 2024-12-18 07:17 | Outpatient (CLI) | payer OTHER | END 2024-12-18 07:18 | disposition home or self-care (01) | LOC: NUCLEAR 07:17 | PROVIDERS: ATTEND Internal Medicine | DX: I11.9 Hypertensive heart disease without heart failure (principal) | CPT/HCPCS: 78452; 93017; A9500; J0153 ==